=== PATIENT | male | born 2005 | race Caucasian/White ===

== ENCOUNTER 2023-08-14 13:01 | Inpatient (IN) | payer OTHER ==
[~2023-08-14] VITALS: Ht 170.2 cm; Wt 68.1 kg
[2023-08-14] MEDS ORDERED: CLAR5TAB11 PO (13:21)
[2023-08-14 13:52] LABS: HEMATOCRIT 45.9 % (42.0-52.0); HEMOGLOBIN 15.7 g/dl (13.5-17.5); MEAN CORPUSCULAR HEMOGLOBIN 29.5 pg (27.0-33.0); MEAN CORPUSCULAR HGB CONC 34.2 g/dl (32.0-36.5); MEAN CORPUSCULAR VOLUME 86.3 fl (80.0-96.0); PLATELET COUNT, AUTOMATED 266 10^3/uL (150-450); RED BLOOD COUNT 5.32 10^6/uL (4.30-6.10)
[2023-08-14 14:12] LABS: AMPHETAMINES LEVEL URINE NEGATIVE (NEGATIVE); PHENCYCLIDINE URINE NEGATIVE (NEGATIVE)
[2023-08-14 14:13] LABS: BARBITURATES URINE NEGATIVE (NEGATIVE); BENZODIAZEPINES URINE NEGATIVE (NEGATIVE); CANNABINOIDS URINE NEGATIVE (NEGATIVE); COCAINE METABOLITE URINE NEGATIVE (NEGATIVE); METHADONE URINE NEGATIVE (NEGATIVE); OPIATES URINE NEGATIVE (NEGATIVE)
[2023-08-14 14:15] LABS: ETHYL ALCOHOL (ETHANOL) 0.006 % (0.000-0.010)
[2023-08-14 14:17] LABS: ACETAMINOPHEN LEVEL < 2.0 UG/ML (10.0-20.0); ALBUMIN 4.4 G/DL (3.2-5.2); ALKALINE PHOSPHATASE 105 U/L (46-116); ALT/SGPT 22 U/L (7.0-40); AST/SGOT 23 U/L (<34); BILIRUBIN,DIRECT 0.1 MG/DL (<0.4); BILIRUBIN,TOTAL 0.4 MG/DL (0.3-1.2); BLOOD UREA NITROGEN 20 MG/DL (9-23); CALCIUM LEVEL 9.4 MG/DL (8.5-10.1); CARBON DIOXIDE LEVEL 27 MMOL/L (20-31); CHLORIDE LEVEL 106 MMOL/L (98-107); CREATININE FOR GFR 0.92 MG/DL (0.70-1.30); GLUCOSE, FASTING 91 MG/DL (60-100); POTASSIUM SERUM 4.4 MMOL/L (3.5-5.1); SALICYLATE LEVEL < 3.0 MG/DL (<30); SODIUM LEVEL 140 MMOL/L (136-145); TOTAL PROTEIN 7.2 G/DL (5.7-8.2)
[2023-08-14 14:19] LABS: THYROID STIMULATING HORMONE 2.918 uIU/ML (0.48-4.17)
[2023-08-14] MEDS ORDERED: ACET-897 PO (22:22)
[2023-08-14] MEDS ORDERED: HOME MED LIST COMPLETE! XX SCH (22:25)
[2023-08-15] MEDS ORDERED: ACETAMINOPHEN 500 MG TAB PO ONE (15:00)
[2023-08-15] MEDS ORDERED: NICOTINE 21MG/24HR 1 EA TRANSDERMAL TD ONE (18:10)
[2023-08-15] MEDS ORDERED: diphenhydrAMINE 25MG CAP PO PRN (19:00)
[2023-08-15] MEDS ORDERED: traZODone 50 MG TAB PO PRN (19:00)
[2023-08-15] MEDS ORDERED: MOM 30ML SUSPENSION UDC PO PRN (19:00)
[2023-08-15] MEDS ORDERED: ACETAMINOPHEN TAB 650MG DOSE (2X325MG) PO PRN (19:00)
[2023-08-15] MEDS ORDERED: IBUPROFEN 400MG TAB PO PRN (19:00)
[2023-08-15] MEDS ORDERED: MAALOX 30 ML SUSP *UDC PO PRN (19:00)
[2023-08-15 21:53] VITALS: BP 115/66; TEMP 98.4; O2SAT 97
[2023-08-16 06:16] VITALS: BP 132/61; TEMP 98.3; O2SAT 100
[2023-08-16] MEDS ORDERED: NICOTINE 21MG/24HR 1 EA TRANSDERMAL TD SCH (09:00)
[2023-08-16] MEDS ORDERED: CETIRIZINE (ZyrTEC) 10 MG TAB PO ONE (14:15)
[2023-08-16 18:18] VITALS: BP 123/79; TEMP 98.3; O2SAT 94
[2023-08-17 06:53] VITALS: BP 130/72; TEMP 98.6; O2SAT 97
[2023-08-17] MEDS ORDERED: CETIRIZINE (ZyrTEC) 10 MG TAB PO SCH (09:00)
== END 2023-08-17 09:33 | disposition home or self-care (01) | DRG 882 ==
LOC: EDBD 13:01 → M ED 13:01 → M ED INP 08-15 19:00 → M PSY 08-15 21:31
PROVIDERS: ADMIT Psychiatry & Neurology Psychiatry; ATTEND Student in an Organized Health Care Education/Training Program
DX: F43.23 Adjustment disorder with mixed anxiety and depressed mood (principal); R45.851 Suicidal ideations; F17.290 Nicotine dependence, other tobacco product, uncomplicated; F10.10 Alcohol abuse, uncomplicated; Z65.3 Problems related to other legal circumstances; Z63.0 Problems in relationship with spouse or partner; Z91.51 Personal history of suicidal behavior; Z83.3 Family history of diabetes mellitus; Z81.1 Family history of alcohol abuse and dependence; Z62.811 Personal history of psychological abuse in childhood; Z20.822 Contact with and (suspected) exposure to COVID-19; Z91.52 Personal history of nonsuicidal self-harm; Z71.6 Tobacco abuse counseling

== ENCOUNTER 2023-10-01 17:59 | Emergency (ER) | payer OTHER ==
[~2023-10-01] VITALS: Ht 170.2 cm; Wt 68.2 kg
[~2023-10-01 17:59] MED LIST: ACET-897 PO; CLAR5TAB11 PO
[2023-10-01] MEDS ORDERED: ceFAZolin SOD 1 GM in D5W MINI-BAG PLUS 50 ML IV ONE (20:05)
[2023-10-01] MEDS ORDERED: LIDOCAINE 1% MDV 20ML VIAL SC ONE (21:00)
[2023-10-01] MEDS ORDERED: CEPH500C PO ×2 (22:09→22:12)
[2023-10-01 22:16] VITALS: BP 118/77; TEMP 98.1; O2SAT 98
== END 2023-10-01 22:32 | disposition home or self-care (01) ==
LOC: M ED 17:59
DX: S61.422A Laceration with foreign body of left hand, initial encounter (principal); F17.290 Nicotine dependence, other tobacco product, uncomplicated; W22.8XXA Striking against or struck by other objects, initial encounter; Y92.9 Unspecified place or not applicable; Z79.1 Long term (current) use of non-steroidal anti-inflammatories (NSAID); Z79.899 Other long term (current) drug therapy
CPT/HCPCS: 12001; 12031; 73130; 96365; 99284; J0690

== ENCOUNTER 2024-01-31 00:36 | Emergency (ER) | payer OTHER ==
[~2024-01-31] VITALS: Ht 170.2 cm; Wt 63.6 kg
[~2024-01-31 00:36] MED LIST changes: +CEPH500C PO
[2024-01-31 02:09] LABS: HEMATOCRIT 46.1 % (42.0-52.0); HEMOGLOBIN 16.2 g/dl (13.5-17.5); MEAN CORPUSCULAR HEMOGLOBIN 29.8 pg (27.0-33.0); MEAN CORPUSCULAR HGB CONC 35.1 g/dl (32.0-36.5); MEAN CORPUSCULAR VOLUME 84.9 fl (80.0-96.0); PLATELET COUNT, AUTOMATED 200 10^3/uL (150-450); RED BLOOD COUNT 5.43 10^6/uL (4.30-6.10); WHITE BLOOD COUNT 8.3 10^3/uL (4.0-10.0)
[2024-01-31] MEDS: ONDANSETRON 4MG 2ML VIAL IV ONE (02:35)
[2024-01-31 03:08] LABS: LIPASE 27 U/L (12-53)
[2024-01-31 03:10] LABS: ALBUMIN 4.4 G/DL (3.2-5.2); ALKALINE PHOSPHATASE 82 U/L (46-116); ALT/SGPT 16 U/L (7.0-40); AST/SGOT 18 U/L (<34); BILIRUBIN,DIRECT 0.3 MG/DL (<0.4); BILIRUBIN,TOTAL 0.6 MG/DL (0.3-1.2); BLOOD UREA NITROGEN 20 MG/DL (9-23); CARBON DIOXIDE LEVEL 25 MMOL/L (20-31); CHLORIDE LEVEL 106 MMOL/L (98-107); CREATININE FOR GFR 1.04 MG/DL (0.70-1.30); GLUCOSE, FASTING 104 MG/DL (60-100); POTASSIUM SERUM 3.9 MMOL/L (3.5-5.1); SODIUM LEVEL 138 MMOL/L (136-145); TOTAL PROTEIN 6.9 G/DL (5.7-8.2)
[2024-01-31 03:55] LABS: Trichomonas vaginalis (AMP) NOT DETECTED (NEGATIVE)
[2024-01-31 04:19] LABS: GC DNA AMPLIFICATION NEGATIVE (NEGATIVE)
[2024-01-31] MEDS ORDERED: ONDA4TAB6 PO (04:44)
[2024-01-31 04:59] VITALS: BP 108/59; TEMP 98; O2SAT 99
== END 2024-01-31 04:59 | disposition home or self-care (01) ==
LOC: M ED 00:36
DX: A08.4 Viral intestinal infection, unspecified (principal)
CPT/HCPCS: 80048; 80076; 83605; 83690; 85027; 87486; 87507; 87581; 87633; 87661; 87798; 87810; 87850; 96374; 99284; J2405

== ENCOUNTER 2024-10-04 10:03 | Emergency (ER) | payer OTHER ==
[~2024-10-04] VITALS: Ht 170.2 cm; Wt 71.1 kg
[~2024-10-04 10:03] MED LIST changes: +ONDA-282 PO
[2024-10-04] MEDS: ACETAMINOPHEN 500 MG TAB PO ONE (11:36)
[2024-10-04] MEDS: KETOROLAC 30 MG/ML 1ML VIAL IM ONE (11:36)
[2024-10-04] MEDS ORDERED: CYCL5TAB4 PO (13:17)
[2024-10-04 13:26] VITALS: BP 113/62; TEMP 97.3; O2SAT 98
== END 2024-10-04 13:29 | disposition home or self-care (01) ==
LOC: M ED 10:03
DX: S33.5XXA Sprain of ligaments of lumbar spine, initial encounter (principal); X50.0XXA Overexertion from strenuous movement or load, initial encounter; Y92.9 Unspecified place or not applicable; Y93.9 Activity, unspecified; Y99.9 Unspecified external cause status; F17.220 Nicotine dependence, chewing tobacco, uncomplicated
CPT/HCPCS: 72072; 72110; 96372; 99283; J1885

== ENCOUNTER → 2024-10-08 | Outpatient (CLI) | payer OTHER ==
[~2024-10-08] MED LIST changes: +CYCL5TAB4 PO; +ISOVUE-300 61% 100ML VIAL As Ordered ONE; +LIDOCAINE 1% MDV 20ML VIAL As Ordered ONE; +PROHANCE 279.3MG/ML 5ML VIAL As Ordered ONE
== END ==
LOC: M RAD 09:02
PROVIDERS: ATTEND Physician Assistant
DX: M25.511 Pain in right shoulder (principal)
CPT/HCPCS: 23350; 73223; 77002; A9576; Q9967